=== PATIENT | female | born 1990 | race African-American/Black ===

== ENCOUNTER 2017-06-18 18:36 | Emergency (ER) | payer SELFPAY ==
[~2017-06-18] VITALS: Ht 172.7 cm; Wt 91.2 kg
[2017-06-18 18:49] VITALS: BP_SYST 121
--- NOTE | 2017-06-18 18:54 | NUR ---
Patient to ER bed H1 to gown for evaluation. Side rails up.
--- NOTE | 2017-06-18 18:56 | NUR ---
Dr. Cortez evaluating pt at this time.
--- NOTE | 2017-06-18 19:00 | NUR ---
Patient to ED for medical clearance-JOANA to book by NUNO. Patient c/o mild head pain 11/26. Patient is awake, alert and oriented in nad. Vital signs stable, respiration even unlabored, skin w/d to touch. Patient has been seen and evaluated by JOANA Brown to book-Patient able to ambulate without difficulty, with slow, steady gait.
[2017-06-18 19:02] VITALS: BP_SYST 121
--- NOTE | 2017-06-18 19:02 | NUR ---
Patient given written and verbal discharge instructions and verbalizes understanding. ER MD discussed with patient the results and treatment provided. Patient in stable condition. ID arm band removed. No Rx given. Patient educated on pain management and to follow up with PMD. Pain Scale 0/10. Opportunity for questions provided and answered.
== END 2017-06-18 19:02 ==
LOC: SED 18:36
DX: Z02.89 Encounter for other administrative examinations (principal); E28.2 Polycystic ovarian syndrome
CPT/HCPCS: 99283